=== PATIENT | female | born 2000 | race Caucasian/White ===

== ENCOUNTER 2021-11-08 03:50 | Emergency (ER) | payer BC ==
[~2021-11-08] VITALS: Ht 160 cm; Wt 57.0 kg
--- NOTE | 2021-11-08 08:14 | NUR ---
PT'S MOTHER, IRENE, CAME IN TO INQUIRE ON PT'S STATUS. MOTHER WAS INFORMED THAT PT WAS STABLE. EXPLAINED THE MH PLACEMENT PROCESS TO HER. ADVISED MOTHER THAT THE PT WILL BE ABLE TO CALL HER WHEN SHE GETS BACK TO [place] AND WILL GET VERBAL PERMISSION FROM THE PT TO SHARE STATUS WITH HER MOTHER DURING HER CURRENT STAY.
--- NOTE | 2021-11-08 08:22 | NUR ---
PT HAS GIVEN PERMISSION TO GIVE HER MOTHER, IRENE, INFORMATION REGARDING HER CURRENT STAY.
--- NOTE | 2021-11-08 08:23 | NUR ---
PT IS COVID NEG AND MOVED OVER TO [facility]
--- NOTE | 2021-11-08 08:34 | NUR ---
Patient transferred from [facility] ER, Accompanied by MANDY Garcia. She climbed in bed, asked how long she was gonna be here, then went to sleep. Patient declined breakfast.
--- NOTE | 2021-11-08 08:56 | NUR ---
Patient's med rec completed. She takes no medication.
--- NOTE | 2021-11-08 09:01 | NUR ---
Patient's mother, but there is no phone avilable at this time. Patient will call her mother when one comes available.
[2021-11-08 09:03] LABS: BASOPHILS # (AUTO) 0.2 X10'3 (0-0.2); BASOPHILS % (AUTO) 1.4 % (0-1); EOSINOPHILS % (AUTO) 0.1 % (0-6); HEMATOCRIT 45.4 % (35.0-45.0); LYMPHOCYTES # (AUTO) 2.8 X10'3 (1.1-4.8); LYMPHOCYTES % (AUTO) 22.1 % (21-51); MEAN CORPUSCULAR HEMOGLOBIN 28.6 PG (27.0-31.0); MEAN CORPUSCULAR HGB CONC 33.1 g/dL (33.0-36.5); MEAN CORPUSCULAR VOLUME 86.4 FL (78-98); MEAN PLATELET VOLUME 7.4 FL (7.4-10.4); MONOCYTES # (AUTO) 1.1 X10'3 (0-0.9); MONOCYTES % (AUTO) 8.9 % (2-12); NEUTROPHILS # (AUTO) 8.6 X10'3 (1.8-7.7); NEUTROPHILS % (AUTO) 67.5 % (42-75); PLATELET COUNT 332 X10'3 (140-440); RED BLOOD COUNT 5.26 X10'6 (4.20-5.60); RED CELL DISTRIBUTION WIDTH 15.6 % (11.5-14.5); WHITE BLOOD COUNT 12.8 X10'3 (4.5-11.0)
[2021-11-08 09:19] LABS: ALANINE AMINOTRANSFERASE 19 U/L (12-78); ALBUMIN 3.8 G/DL (3.4-5.0); ALKALINE PHOSPHATASE 80 IU/L (46-116); ANION GAP 13 (8-16); ASPARTATE AMINO TRANSFERASE 27 U/L (10-37); BILIRUBIN,TOTAL 0.2 MG/DL (0.1-1.0); BLOOD UREA NITROGEN 7 MG/DL (7-18); BUN/CREATININE RATIO 10.6 (6.6-38.0); CALCIUM 8.3 MG/DL (8.5-10.1); CHLORIDE 108 MMOL/L (99-107); CREATININE 0.66 MG/DL (0.40-0.90); GLUCOSE 84 MG/DL (70-104); POTASSIUM 3.8 MMOL/L (3.5-5.1); SODIUM 144 MMOL/L (135-145); TOTAL CARBON DIOXIDE 22.7 MMOL/L (24-32); TOTAL PROTEIN 7.6 G/DL (6.4-8.2); eGFR > 90 ML/MIN
[2021-11-08 09:27] LABS: ETHANOL 0.143 GM/DL (0.0-0.010)
--- NOTE | 2021-11-08 10:15 | NUR ---
Patient's urine sample has been sent to the lab.
[2021-11-08 10:33] LABS: CLARITY,URINE SLIGHTLY CLOUDY (Clear); COLOR,URINE YELLOW (Yellow); GLUCOSE, URINE NEGATIVE (Neg); KETONES,URINE 15 mg/dl (Neg); LEUKOCYTE ESTERASE ,URINE NEGATIVE (Neg); NITRITES, URINE NEGATIVE (Neg); OCCULT BLOOD,URINE TRACE-INTACT (Neg); PH,URINE 5.5 (4.8-8.0); PROTEIN,URINE TRACE mg/dl (Neg); UROBILINOGEN,URINE 0.2 E.U/dL (0.2-1.0)
--- NOTE | 2021-11-08 10:34 | NUR ---
Patient is on the phone with her Father. His name is GuilhermeJori
[2021-11-08 10:37] LABS: URINE HCG POSITIVE (NEG)
[2021-11-08 10:47] LABS: UA COLLECTION TYPE VOIDED
[2021-11-08 10:48] LABS: AMORPHOUS URATES 1+; BACTERIA,URINE NONE SEEN /HPF (Neg); MUCUS STRANDS FEW /LPF (Neg); RBC,URINE 0-2 /HPF (0-2); SQUAMOUS EPITHELIAL CELL,UR NONE SEEN /LPF (FEW); WBC,URINE NONE SEEN /HPF (0-4)
[2021-11-08 10:49] LABS: COARSE GRANULAR CAST 0-3 /LPF (NEGATIVE); URIC ACID CRYSTALS 1+ /HPF (NEGATIVE)
[2021-11-08 10:50] LABS: URINE AMPHETAMINE SCREEN NEGATIVE (Neg); URINE BARBITUATE SCREEN NEGATIVE (Neg); URINE BENZODIAZEPINES SCREEN NEGATIVE (Neg); URINE CANNABINOID SCREEN POSITIVE (Neg); URINE COCAINE SCREEN NEGATIVE (Neg); URINE METHADONE SCREEN NEGATIVE (Neg); URINE OPIATE SCREEN NEGATIVE (Neg); URINE PHENCYCLIDINE SCREEN NEGATIVE (Neg)
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
--- NOTE | 2021-11-08 12:13 | NUR ---
Patient has been in and out of the bathroom dry heaving. She has been told that she is . Patient refused breakfast and lunch.
--- NOTE | 2021-11-08 12:30 | NUR ---
Order received from Dr. Sommer for 1000 ML Normal Saline IV and Protonix 40mg/Normal Saline 1000 IV.
[2021-11-08] MEDS ORDERED: normal saline 1000ML IV soln IVB ONE (12:35)
[2021-11-08] MEDS ORDERED: pyridoxine 50mg tablet PO ONE ×2 (12:35→19:30)
[2021-11-08] MEDS ORDERED: pantoprazole 40 MG vial IV ONE (12:35)
[2021-11-08] MEDS ORDERED: pantoprazole 40MG/NS 100ML BAG 100 ML IV ONE (12:40)
--- NOTE | 2021-11-08 14:16 | NUR ---
Patient's Protonix has finished, but NS will continue until empty. She has tolerated it well, and patient has stopped vomiting.
--- NOTE | 2021-11-08 17:39 | NUR ---
Patient placed on hold by [facility].
--- NOTE | 2021-11-08 19:13 | NUR ---
Patient is visiting with family; no apparet Addendum: 11/08/21 at 1914 by ELENA No apparent distress observed.
--- NOTE | 2021-11-08 19:56 | NUR ---
Received one time order for pyridoxine 25mg PO for vomiting but patient refused PO medication; stating, "it'll be pointless. I can't keep anything down." PA notified and will be ordering an IV medication.
[2021-11-08] MEDS ORDERED: diphenhydrAMINE 50 mg/ml inj IV ONE (20:30)
--- NOTE | 2021-11-08 20:39 | NUR ---
Spoke with [facility]; they had accepted the patient but requested ultra sound for age of . Post ultra sound, per PA, rule out for atopic required prior to transfer.
--- NOTE | 2021-11-08 23:00 | NUR ---
Patient is observed sleeping; no apparent distress at this time. Some relief observed post IV Benadryl; however, did wake up briefly vomiting but able to go back to sleep.
--- NOTE | 2021-11-09 02:00 | NUR ---
Patient is observed sleeping; no apparent distress at this time. Continues to wake up periodically vomiting and goes back to sleep.
--- NOTE | 2021-11-09 05:12 | NUR ---
Patient observed sleeping; no apparent distress at this time. No N/V observed.
--- NOTE | 2021-11-09 06:30 | NUR ---
Received report from noc shift. Assumed patient care. Patient sleeping in bed at this time. Patient in line of site observation.
--- NOTE | 2021-11-09 07:05 | NUR ---
Received results from [id number]. Spoke with [facility] Charge ED and located . Dr. Sommer discussing results with Dr. Childs at this time and will follow up when available.
--- NOTE | 2021-11-09 08:00 | NUR ---
Devorah (Mom) here at patient's bedside for visiting. Mom requested to speak to Aditya from [facility] when he arrived to unit. Informed patient and mom I would let him know when he arrived to unit. Patient eating breakfast. Will continue to monitor.
--- NOTE | 2021-11-09 09:15 | NUR ---
Aditya from [facility] is speaking with patient and her mom at this time. Patient tearful at times. Assessment completed. Patient resting in bed.
--- NOTE | 2021-11-09 09:59 | NUR ---
Aditya speaking to patient and her mom at bedside. Patient tearful again and support given to her. Offered TV to assist with some distraction. Patient and mom currently watching TV.
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
--- NOTE | 2021-11-09 12:00 | NUR ---
Patient's brother & brother's gf at bedside visiting with patient. Spoke with Dr. Sommer regarding patient. Patient to have a repeat Quantatative HCG in am (orders enters for 0800). Patient resting in bed.
--- NOTE | 2021-11-09 12:30 | NUR ---
Patient eating lunch. Patient's brother visiting at bedside.
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
--- NOTE | 2021-11-09 14:06 | NUR ---
Patient's sister and mother at bedside visiting patient at this time.
--- NOTE | 2021-11-09 16:02 | NUR ---
Patient up to the bathroom to void. Mom at bedside. Patient watching TV while resting in bed. Will continue to monitor.
--- NOTE | 2021-11-09 17:24 | NUR ---
Patient resting in bed at this time. Mom sitting at bedside. Will continue to monitor.
--- NOTE | 2021-11-09 18:56 | NUR ---
pt laying in bed at change of shift, family at bedside. Pt states she is here because she made suicidal statements and states that she is no longer suicidal. Pt states she only said those things because she had been drinking.
--- NOTE | 2021-11-09 19:50 | NUR ---
Pt is laying in bed asleep rr even and unlabored. Pts mother is at bedside.
--- NOTE | 2021-11-10 00:28 | NUR ---
Pt continues to sleep, laying on her right side. RR even and unlabored.
--- NOTE | 2021-11-10 02:37 | NUR ---
Pt is asleep RR even and unlabored
--- NOTE | 2021-11-10 04:10 | NUR ---
Pt is laying in bed appears to be sleeping rr even and unlabored
--- NOTE | 2021-11-10 05:04 | NUR ---
Pt is laying on her right side asleep. RR even and unlabored.
[2021-11-10 05:35] VITALS: BP 119/69
[2021-11-10] MEDS ORDERED: NO HOME MEDS (05:44)
--- NOTE | 2021-11-10 06:29 | NUR ---
Patient sleeping supine. No distress observed. Continue to monitor.
--- NOTE | 2021-11-10 08:25 | NUR ---
Patient's mother at bedside. No distress observed. Patient is watching T.V. Continue to monitor.
--- NOTE | 2021-11-10 10:19 | NUR ---
Patient and mom advised that when her lab comes back and she is medically cleared[facility] to see if she can safety plan. Patient and mother verbalized understanding. All questions were answered. Continue to monitor.
--- NOTE | 2021-11-10 11:45 | NUR ---
Patient reclining in bed with mother at bedside watching T.V. No distress observed. Continue to monitor.
--- NOTE | 2021-11-10 12:11 | NUR ---
Patient eating lunch. No distress observed. Continue to monitor.
== END 2021-11-10 15:27 | disposition home or self-care (01) ==
LOC: EEVIPCON 03:51 → ER 03:51
DX: O99.341 Other mental disorders complicating pregnancy, first trimester (principal); Z20.822 Contact with and (suspected) exposure to COVID-19; F43.21 Adjustment disorder with depressed mood
CPT/HCPCS: 36415; 76801; 80053; 80305; 80320; 81001; 81025; 84443; 84702; 85025; 87811; 96365; 96375; 99285; C9113; J1200; J7030